=== PATIENT | female | born 2000 | race Two or more races ===

== ENCOUNTER 2022-09-11 21:39 | Inpatient (IN) | payer MEDICAID, OTHER ==
[~2022-09-11] VITALS: Ht 157.5 cm; Wt 83.0 kg
[2022-09-11] MEDS ORDERED: SODIUM CHLORIDE 0.9% 500 ML IV STA (22:14)
[2022-09-11] MEDS ORDERED: SODIUM CHLORIDE 0.9% 500 ML IV ONE (22:15)
[2022-09-11 22:45] LABS: Basophils # (auto) 0 10 ^3/uL (0-0.2); Basophils % (auto) 0.1 % (0.0-2.0); Eosinophils # (auto) 0 10 ^3/uL (0-0.8); Hematocrit 43.3 % (36.0-46.0); Hemoglobin 14.8 g/dL (12.2-16.2); Lymphocytes % (auto) 5.4 % (10.0-50.0); Mean Corpuscular Hgb Conc. 34.2 g/dL (32.0-36.0); Mean Corpuscular Volume 90.6 fL (80.0-100.0); Monocytes % (auto) 5.6 % (0.0-12.0); Neutrophils # (auto) 16.4 10 ^3/uL (1.6-8.6); Neutrophils % (auto) 88.9 % (37.0-80.0); Red Blood Cells 4.78 10^6/uL (4.0-5.20); White Blood Cell 18.5 10^3/uL (4.4-10.8)
[2022-09-11] MEDS ORDERED: ACETAMINOPHEN 650 mg PER 20.3 mL UD PO ONE (22:45)
[2022-09-11] MEDS ORDERED: AZITHROMYCIN 500MG/ 250ML 250 ML IV ONE (22:45)
[2022-09-11] MEDS ORDERED: cefTRIAXone 1GM/50ML D5W 50 ML IV ONE (22:45)
[2022-09-11 23:01] LABS: Albumin 3.7 g/dL (3.4-5.0); BUN/Creatinine Ratio 13.2; Calcium 9.2 mg/dL (8.5-10.1); Potassium 3.8 mmol/L (3.5-5.1)
[2022-09-11 23:03] LABS: Bilirubin, Total 1.2 mg/dL (0.2-1.0); Total Protein 8.1 g/dL (6.4-8.2)
[2022-09-11 23:27] LABS: Beta HCG, Quantitative < 1 mlU/mL (1-3); Thyroid Stimulating Hormone 0.58 uIU/mL (0.358-3.74)
[2022-09-12 00:51] LABS: Urine Bacteria FEW /hpf (None Seen); Urine Blood TRACE /uL (Negative); Urine Mucus FEW (None Seen); Urine Specific Gravity 1.019 (1.001-1.035); Urine WBC 65 /hpf (0 - 5)
[2022-09-12] MEDS ORDERED: NITROGLYCERIN 0.4 MG SL TAB SL PRN (03:00)
[2022-09-12] MEDS ORDERED: MORPHINE SULFATE INJ 2 MG/ml SYRG IV PRN (03:00)
[2022-09-12] MEDS: SODIUM CHLORIDE 0.9% 1,000 ML IV SCH ×2 (03:18→14:46)
[2022-09-12] MEDS: HYDROcodone-ACET 5/325MG TAB PO PRN ×4 (05:24→18:46)
[2022-09-12] MEDS: PANTOPRAZOLE 40 MG TAB PO SCH (09:38)
[2022-09-12] MEDS: ACETAMINOPHEN 325 MG TAB PO PRN ×2 (14:42→21:52)
[2022-09-12] MEDS: ONDANSETRON HCL 4 MG/2 ML VIAL IV PRN (15:26)
[2022-09-12] MEDS ORDERED: SENNA 8.6 MG TAB PO PRN (15:30)
[2022-09-12] MEDS ORDERED: POLYETHYLENE GLYCOL 17 GM PWDR PO PRN (15:30)
[2022-09-12 16:45] VITALS: BP 120/67
[2022-09-12 16:56] VITALS: BP 104/65
[2022-09-12 20:00] VITALS: BP 120/67
[2022-09-12] MEDS: SENNA 8.6 MG TAB PO SCH (21:55)
[2022-09-12 22:00] VITALS: BP 120/67
[2022-09-12] MEDS ORDERED: cefTRIAXone 1GM/50ML D5W 50 ML IV ONE (22:00)
[2022-09-12] MEDS: MORPHINE SULFATE INJ 2 MG/ml SYRG IV PRN (22:24)
[2022-09-13] MEDS: ACETAMINOPHEN 325 MG TAB PO PRN ×3 (02:13→07:58)
[2022-09-13] MEDS: SODIUM CHLORIDE 0.9% 1,000 ML IV SCH ×3 (02:32→20:43)
[2022-09-13] MEDS ORDERED: IBUPROFEN 800 MG TAB PO ONE ×2 (03:30→03:32)
[2022-09-13] MEDS: MORPHINE SULFATE INJ 2 MG/ml SYRG IV PRN ×2 (03:45→21:02)
[2022-09-13] MEDS: ONDANSETRON HCL 4 MG/2 ML VIAL IV PRN (03:45)
[2022-09-13 05:00] VITALS: BP_SYST 101; BP_SYST 118; BP_DIAS 47; BP_DIAS 74
[2022-09-13 07:16] LABS: Hematocrit 34.6 % (36.0-46.0); Mean Corpuscular Hemoglobin 31.7 pg (28.0-32.0); Mean Corpuscular Hgb Conc. 34.8 g/dL (32.0-36.0); Mean Corpuscular Volume 91.2 fL (80.0-100.0); Red Blood Cells 3.79 10^6/uL (4.0-5.20); Red Cell Distribution Width 13.1 % (11.8-14.3); White Blood Cell 7.9 10^3/uL (4.4-10.8)
[2022-09-13 07:21] LABS: Basophils % (manual) 0 (0.0-2.0); Blast Cells 0; Eosinophils % (manual) 0 (0-7); Promyelocytes % 0; Reactive Lymphocytes 0
[2022-09-13 07:24] LABS: Albumin 2.5 g/dL (3.4-5.0); BUN/Creatinine Ratio 11.3; Calcium 8.1 mg/dL (8.5-10.1); Potassium 3.1 mmol/L (3.5-5.1)
[2022-09-13 07:28] LABS: Bilirubin, Total 1.7 mg/dL (0.2-1.0); Total Protein 5.3 g/dL (6.4-8.2)
[2022-09-13 09:00] VITALS: BP 101/56
[2022-09-13] MEDS: cefTRIAXone 1GM/50ML D5W 50 ML IV SCH (09:11)
[2022-09-13] MEDS: PANTOPRAZOLE 40 MG TAB PO SCH (09:11)
[2022-09-13 09:18] LABS: Band Neutrophils % (manual) 27; Lymphocytes % (manual) 8 (10.0-50.0); Metamyelocytes % 1; Monocytes % (manual) 1 (0-12); Myelocytes % 1
[2022-09-13] MEDS ORDERED: POTASSIUM EFFERVESENT TAB 25 MEQ GT ONE (10:15)
[2022-09-13] MEDS ORDERED: IBUPROFEN 400 MG TAB PO PRN (10:30)
[2022-09-13 13:00] VITALS: BP 126/90
[2022-09-13 17:00] VITALS: BP 110/73
[2022-09-13] MEDS: SENNA 8.6 MG TAB PO SCH (21:01)
[2022-09-13] MEDS: HYDROcodone-ACET 5/325MG TAB PO PRN (22:42)
[2022-09-14 05:00] VITALS: BP 104/61
[2022-09-14] MEDS: SODIUM CHLORIDE 0.9% 1,000 ML IV SCH ×3 (06:50→21:55)
[2022-09-14 06:59] LABS: Calcium 7.7 mg/dL (8.5-10.1); Potassium 3.9 mmol/L (3.5-5.1)
[2022-09-14 07:05] LABS: Albumin 2.4 g/dL (3.4-5.0); BUN/Creatinine Ratio 14.1; Basophils # (auto) 0 10 ^3/uL (0-0.2); Basophils % (auto) 0.1 % (0.0-2.0); Bilirubin, Total 0.7 mg/dL (0.2-1.0); Eosinophils # (auto) 0 10 ^3/uL (0-0.8); Hematocrit 36.9 % (36.0-46.0); Hemoglobin 11.9 g/dL (12.2-16.2); Lymphocytes # (auto) 1.4 10 ^3/uL (0.4-5.4); Lymphocytes % (auto) 10.2 % (10.0-50.0); Mean Corpuscular Hemoglobin 29.9 pg (28.0-32.0); Mean Corpuscular Hgb Conc. 32.3 g/dL (32.0-36.0); Mean Corpuscular Volume 92.6 fL (80.0-100.0); Monocytes % (auto) 7.5 % (0.0-12.0); Neutrophils % (auto) 82.2 % (37.0-80.0); Red Blood Cells 3.99 10^6/uL (4.0-5.20); Red Cell Distribution Width 13.2 % (11.8-14.3); Total Protein 5.2 g/dL (6.4-8.2); White Blood Cell 13.3 10^3/uL (4.4-10.8)
[2022-09-14 09:00] VITALS: BP 119/81
[2022-09-14] MEDS: PANTOPRAZOLE 40 MG TAB PO SCH (10:56)
[2022-09-14] MEDS: cefTRIAXone 1GM/50ML D5W 50 ML IV SCH (10:56)
[2022-09-14] MEDS: MORPHINE SULFATE INJ 2 MG/ml SYRG IV PRN (11:47)
[2022-09-14] MEDS ORDERED: MORPHINE SULFATE INJ 2 MG/ml SYRG IV PRN (12:00)
[2022-09-14 13:00] VITALS: BP 130/85
[2022-09-14] MEDS: KETOROLAC TROMETH 30 MG/ML 1ML VIAL IV PRN ×2 (15:36→22:17)
[2022-09-14 17:00] VITALS: BP 122/77
[2022-09-14 20:00] VITALS: BP 134/82
[2022-09-14] MEDS: SENNA 8.6 MG TAB PO SCH (21:55)
[2022-09-14 22:00] VITALS: BP 101/54
[2022-09-14] MEDS: HYDROcodone-ACET 5/325MG TAB PO PRN (23:25)
[2022-09-15] VITALS (7 sets, daily range): BP systolic 95–113; BP diastolic 50–74
[2022-09-15] MEDS ORDERED: AMIODARONE HCL (50 MG/ ML) 3 ML VIAL IV ONE (02:22)
[2022-09-15] MEDS ORDERED: AMIODARONE 450mg/250ml AE 0 ML IV ONE (02:22)
[2022-09-15] MEDS: HYDROcodone-ACET 5/325MG TAB PO PRN (03:55)
[2022-09-15] MEDS: ACETAMINOPHEN 325 MG TAB PO PRN (05:38)
[2022-09-15 07:19] LABS: Potassium 3.9 mmol/L (3.5-5.1)
[2022-09-15 07:26] LABS: Albumin 2.4 g/dL (3.4-5.0); BUN/Creatinine Ratio 12.1; Bilirubin, Total 1.4 mg/dL (0.2-1.0); Calcium 7.7 mg/dL (8.5-10.1); Total Protein 5.8 g/dL (6.4-8.2)
[2022-09-15] MEDS: cefTRIAXone 1GM/50ML D5W 50 ML IV SCH (09:26)
[2022-09-15] MEDS: PANTOPRAZOLE 40 MG TAB PO SCH (09:27)
[2022-09-15 09:59] LABS: Basophils # (auto) 0 10 ^3/uL (0-0.2); Basophils % (auto) 0.1 % (0.0-2.0); Eosinophils # (auto) 0 10 ^3/uL (0-0.8); Hematocrit 34.4 % (36.0-46.0); Hemoglobin 11.3 g/dL (12.2-16.2); Lymphocytes # (auto) 0.7 10 ^3/uL (0.4-5.4); Lymphocytes % (auto) 4.7 % (10.0-50.0); Mean Corpuscular Hemoglobin 30.3 pg (28.0-32.0); Mean Corpuscular Hgb Conc. 32.7 g/dL (32.0-36.0); Mean Corpuscular Volume 92.5 fL (80.0-100.0); Monocytes # (auto) 1.1 10 ^3/uL (0-1.3); Monocytes % (auto) 7.4 % (0.0-12.0); Neutrophils % (auto) 87.8 % (37.0-80.0); Red Blood Cells 3.72 10^6/uL (4.0-5.20); Red Cell Distribution Width 13.5 % (11.8-14.3); White Blood Cell 14.8 10^3/uL (4.4-10.8)
[2022-09-15] MEDS ORDERED: cefTRIAXone 1GM/50ML D5W 50 ML IV ONE (12:00)
[2022-09-15] MEDS ORDERED: IOHEXOL 300 MG/ML 100ML BOTTLE IJ ONE (12:01)
[2022-09-15] MEDS: SODIUM CHLORIDE 0.9% 1,000 ML IV SCH ×2 (12:15→22:15)
[2022-09-15] MEDS: KETOROLAC TROMETH 30 MG/ML 1ML VIAL IV PRN ×2 (13:40→21:22)
[2022-09-15] MEDS ORDERED: TAMSULOSIN HYDROCHLORIDE 0.4 MG CAP PO SCH (14:30)
[2022-09-15] MEDS ORDERED: MANNITOL FTV 25% 12.5 GM/50 ML 50 ML IV ONE (14:30)
[2022-09-15] MEDS ORDERED: HYDROmorphone HCL 2 MG/ML VL/or syr IV PRN (15:00)
[2022-09-15] MEDS ORDERED: IODIXANOL 320MG/ML 100ML BTL IV ONE (15:16)
[2022-09-15] MEDS ORDERED: MIDAZOLAM HCL 2MG/2ML 2ml VIAL (1mg/ml) ONE (15:16)
[2022-09-15] MEDS ORDERED: fentaNYL CITRATE 100 MCG/2 ML VL ONE (15:16)
[2022-09-15] MEDS ORDERED: LIDOCAINE 2%HCL (LOCAL ANESTH.) INJ 20ML MDV ONE (15:17)
[2022-09-15] MEDS ORDERED: ceFAZolin 1GM/50ML 50 ML IV ONE (15:19)
[2022-09-15 16:40] LABS: INR 1.04 (0.9-1.15); Partial Thromboplastin Time < 20.0 sec (24.6-33.4)
[2022-09-15] MEDS: SENNA 8.6 MG TAB PO SCH (21:22)
[2022-09-16] MEDS: ACETAMINOPHEN 325 MG TAB PO PRN (04:32)
[2022-09-16 05:00] VITALS: BP 137/83
[2022-09-16 05:58] LABS: Basophils # (auto) 0 10 ^3/uL (0-0.2); Basophils % (auto) 0.2 % (0.0-2.0); Eosinophils # (auto) 0 10 ^3/uL (0-0.8); Hematocrit 35.3 % (36.0-46.0); Hemoglobin 11.5 g/dL (12.2-16.2); Lymphocytes # (auto) 1.6 10 ^3/uL (0.4-5.4); Lymphocytes % (auto) 9.6 % (10.0-50.0); Mean Corpuscular Hemoglobin 30.5 pg (28.0-32.0); Mean Corpuscular Hgb Conc. 32.6 g/dL (32.0-36.0); Mean Corpuscular Volume 93.6 fL (80.0-100.0); Monocytes # (auto) 1.2 10 ^3/uL (0-1.3); Monocytes % (auto) 7.2 % (0.0-12.0); Neutrophils # (auto) 13.7 10 ^3/uL (1.6-8.6); Nucleated Red Blood Cells % 0.1 %; Red Blood Cells 3.78 10^6/uL (4.0-5.20); Red Cell Distribution Width 13.9 % (11.8-14.3); White Blood Cell 16.5 10^3/uL (4.4-10.8)
[2022-09-16 06:30] LABS: Calcium 8.1 mg/dL (8.5-10.1); Potassium 3.8 mmol/L (3.5-5.1)
[2022-09-16 06:31] LABS: BUN/Creatinine Ratio 17.6
[2022-09-16 06:35] LABS: Bilirubin, Total 0.8 mg/dL (0.2-1.0); Total Protein 5.7 g/dL (6.4-8.2)
[2022-09-16] MEDS: KETOROLAC TROMETH 30 MG/ML 1ML VIAL IV PRN ×2 (08:48→20:06)
[2022-09-16 09:00] VITALS: BP 111/72
[2022-09-16] MEDS: PANTOPRAZOLE 40 MG TAB PO SCH (09:50)
[2022-09-16] MEDS: CEFEPIME 2 GM in SODIUM CHL 0.9% 50 ML IV SCH (09:50)
[2022-09-16 13:00] VITALS: BP 93/59
[2022-09-16 17:11] VITALS: BP 126/83
[2022-09-16] MEDS: SODIUM CHLORIDE 0.9% 1,000 ML IV SCH ×2 (18:11→18:15)
[2022-09-16] MEDS: SENNA 8.6 MG TAB PO SCH (21:16)
[2022-09-16 22:00] VITALS: BP 121/82
[2022-09-17] MEDS: KETOROLAC TROMETH 30 MG/ML 1ML VIAL IV PRN (03:41)
[2022-09-17] MEDS: SODIUM CHLORIDE 0.9% 1,000 ML IV SCH ×3 (03:48→20:33)
[2022-09-17 05:00] VITALS: BP 123/81
[2022-09-17 06:16] LABS: Hematocrit 32.3 % (36.0-46.0); Hemoglobin 10.9 g/dL (12.2-16.2); Mean Corpuscular Hemoglobin 31.1 pg (28.0-32.0); Mean Corpuscular Hgb Conc. 33.8 g/dL (32.0-36.0); Mean Corpuscular Volume 91.9 fL (80.0-100.0); Red Blood Cells 3.51 10^6/uL (4.0-5.20); Red Cell Distribution Width 13.8 % (11.8-14.3); White Blood Cell 13.4 10^3/uL (4.4-10.8)
[2022-09-17 06:17] LABS: Basophils % (manual) 0 (0.0-2.0); Blast Cells 0; Eosinophils % (manual) 0 (0-7); Metamyelocytes % 0; Myelocytes % 0; Promyelocytes % 0; Reactive Lymphocytes 0
[2022-09-17 06:31] LABS: Potassium 3.4 mmol/L (3.5-5.1)
[2022-09-17 06:41] LABS: Albumin 2.1 g/dL (3.4-5.0); BUN/Creatinine Ratio 19.3; Bilirubin, Total 0.6 mg/dL (0.2-1.0); Calcium 7.7 mg/dL (8.5-10.1); Total Protein 5.6 g/dL (6.4-8.2)
[2022-09-17 08:00] VITALS: BP 117/75
[2022-09-17 08:54] LABS: Band Neutrophils % (manual) 12; Lymphocytes % (manual) 22 (10.0-50.0); Monocytes % (manual) 5 (0-12)
[2022-09-17 09:00] VITALS: BP 117/75
[2022-09-17] MEDS: CEFEPIME 2 GM in SODIUM CHL 0.9% 50 ML IV SCH (10:46)
[2022-09-17] MEDS: PANTOPRAZOLE 40 MG TAB PO SCH (10:46)
[2022-09-17 13:00] VITALS: BP 118/82
[2022-09-17 17:00] VITALS: BP 123/84
[2022-09-17] MEDS: SENNA 8.6 MG TAB PO SCH (21:47)
[2022-09-17 22:00] VITALS: BP 117/81
[2022-09-18] VITALS (7 sets, daily range): BP systolic 114–130; BP diastolic 74–93
[2022-09-18 05:49] LABS: Hematocrit 33.1 % (36.0-46.0); Mean Corpuscular Hemoglobin 30.6 pg (28.0-32.0); Mean Corpuscular Hgb Conc. 33.3 g/dL (32.0-36.0); Mean Corpuscular Volume 91.9 fL (80.0-100.0); Red Cell Distribution Width 14.1 % (11.8-14.3); White Blood Cell 14.1 10^3/uL (4.4-10.8)
[2022-09-18 06:03] LABS: Calcium 7.5 mg/dL (8.5-10.1); Potassium 3.3 mmol/L (3.5-5.1)
[2022-09-18 06:04] LABS: Basophils % (manual) 0 (0.0-2.0); Blast Cells 0; Eosinophils % (manual) 0 (0-7); Metamyelocytes % 0; Myelocytes % 0; Promyelocytes % 0; Reactive Lymphocytes 0
[2022-09-18 06:09] LABS: Albumin 2.1 g/dL (3.4-5.0); BUN/Creatinine Ratio 10.9; Bilirubin, Total 0.6 mg/dL (0.2-1.0); Total Protein 5.8 g/dL (6.4-8.2)
[2022-09-18] MEDS: CEFEPIME 2 GM in SODIUM CHL 0.9% 50 ML IV SCH (08:42)
[2022-09-18] MEDS: SODIUM CHLORIDE 0.9% 1,000 ML IV SCH ×2 (08:43→20:15)
[2022-09-18] MEDS: PANTOPRAZOLE 40 MG TAB PO SCH (08:51)
[2022-09-18 13:49] LABS: Band Neutrophils % (manual) 1; Lymphocytes % (manual) 25 (10.0-50.0); Monocytes % (manual) 1 (0-12)
[2022-09-18] MEDS ORDERED: CEFTRIAXONE SODIUM 2 GM in D5W 5% 50 ML IV ONE (17:00)
[2022-09-18] MEDS: TEMAZEPAM 15 MG CAP PO PRN (21:27)
[2022-09-18] MEDS: SENNA 8.6 MG TAB PO SCH (21:28)
[2022-09-18] MEDS: ACETAMINOPHEN 325 MG TAB PO PRN (21:28)
[2022-09-19 05:00] VITALS: BP 116/86
[2022-09-19] MEDS: SODIUM CHLORIDE 0.9% 1,000 ML IV SCH ×2 (05:24→17:39)
[2022-09-19 06:17] LABS: Hematocrit 34.3 % (36.0-46.0); Hemoglobin 11.3 g/dL (12.2-16.2); Mean Corpuscular Hemoglobin 30.1 pg (28.0-32.0); Mean Corpuscular Hgb Conc. 32.9 g/dL (32.0-36.0); Mean Corpuscular Volume 91.6 fL (80.0-100.0); Red Blood Cells 3.74 10^6/uL (4.0-5.20); Red Cell Distribution Width 13.6 % (11.8-14.3); White Blood Cell 14.3 10^3/uL (4.4-10.8)
[2022-09-19 06:29] LABS: Basophils % (manual) 0 (0.0-2.0); Blast Cells 0; Eosinophils % (manual) 0 (0-7); Myelocytes % 0; Promyelocytes % 0; Reactive Lymphocytes 0
[2022-09-19 06:35] LABS: Albumin 2.6 g/dL (3.4-5.0); Calcium 7.7 mg/dL (8.5-10.1); Potassium 3.3 mmol/L (3.5-5.1)
[2022-09-19 06:38] LABS: BUN/Creatinine Ratio 6.8; Bilirubin, Total 0.8 mg/dL (0.2-1.0); Total Protein 5.8 g/dL (6.4-8.2)
[2022-09-19 07:32] LABS: Band Neutrophils % (manual) 16; Lymphocytes % (manual) 18 (10.0-50.0); Metamyelocytes % 4; Monocytes % (manual) 3 (0-12)
[2022-09-19 09:00] VITALS: BP 116/82
[2022-09-19] MEDS: CEFTRIAXONE SODIUM 2 GM in D5W 5% 50 ML IV SCH (09:03)
[2022-09-19] MEDS: PANTOPRAZOLE 40 MG TAB PO SCH (09:03)
[2022-09-19 13:00] VITALS: BP 121/77
[2022-09-19 17:00] VITALS: BP 116/83
[2022-09-19] MEDS: TEMAZEPAM 15 MG CAP PO PRN (21:53)
[2022-09-19] MEDS: ACETAMINOPHEN 325 MG TAB PO PRN (21:53)
[2022-09-19] MEDS: SENNA 8.6 MG TAB PO SCH (21:59)
[2022-09-19 22:00] VITALS: BP 121/81
[2022-09-20] MEDS: SODIUM CHLORIDE 0.9% 1,000 ML IV SCH ×2 (04:37→12:15)
[2022-09-20 05:00] VITALS: BP 117/80
[2022-09-20] MEDS: CEFTRIAXONE SODIUM 2 GM in D5W 5% 50 ML IV SCH (08:51)
[2022-09-20] MEDS: ACETAMINOPHEN 325 MG TAB PO PRN (08:51)
[2022-09-20] MEDS: PANTOPRAZOLE 40 MG TAB PO SCH (08:51)
[2022-09-20 09:00] VITALS: BP 115/81
[2022-09-20 10:31] LABS: Hematocrit 36.1 % (36.0-46.0); Hemoglobin 11.6 g/dL (12.2-16.2); Mean Corpuscular Hemoglobin 29.9 pg (28.0-32.0); Mean Corpuscular Hgb Conc. 32.1 g/dL (32.0-36.0); Mean Corpuscular Volume 93.4 fL (80.0-100.0); Red Blood Cells 3.86 10^6/uL (4.0-5.20); White Blood Cell 11.8 10^3/uL (4.4-10.8)
[2022-09-20 10:38] LABS: Basophils % (manual) 0 (0.0-2.0); Blast Cells 0; Eosinophils % (manual) 0 (0-7); Myelocytes % 0; Promyelocytes % 0; Reactive Lymphocytes 0
[2022-09-20 12:36] LABS: Band Neutrophils % (manual) 1; Lymphocytes % (manual) 26 (10.0-50.0); Metamyelocytes % 4; Monocytes % (manual) 7 (0-12)
[2022-09-20 13:00] VITALS: BP 109/72
[2022-09-20] MEDS ORDERED: CEFD300C2 PO (15:35)
[2022-09-20 16:49] VITALS: BP 113/76
== END 2022-09-20 18:30 | disposition home or self-care (01) | DRG 720 ==
LOC: ER 21:40 → TELE 09-12 02:56 → TELE-E-ADS 09-12 16:03 → TELE-CENTR 09-12 18:30
PROVIDERS: ADMIT Nurse Practitioner; ATTEND Student in an Organized Health Care Education/Training Program
PROC: 0T9330Z Drainage of Right Kidney Pelvis with Drainage Device, Percutaneous Approach (ICD-10-PCS; principal; 2022-09-15)
PROC: BT111ZZ Fluoroscopy of Right Kidney using Low Osmolar Contrast (ICD-10-PCS; 2022-09-15)
PROC: BT41ZZZ Ultrasonography of Right Kidney (ICD-10-PCS; 2022-09-15)
DX: A41.59 Other Gram-negative sepsis (principal); G93.41 Metabolic encephalopathy; N17.9 Acute kidney failure, unspecified; F05 Delirium due to known physiological condition; D69.6 Thrombocytopenia, unspecified; E86.0 Dehydration; N13.6 Pyonephrosis; B96.4 Proteus (mirabilis) (morganii) as the cause of diseases classified elsewhere; E66.9 Obesity, unspecified; G47.33 Obstructive sleep apnea (adult) (pediatric); M54.50 Low back pain, unspecified; Z20.822 Contact with and (suspected) exposure to COVID-19; Z93.6 Other artificial openings of urinary tract status
CPT/HCPCS: 36415; 36558; 71045; 74176; 74177; 74425; 76775; 76942; 77001; 80053; 81001; 83605; 83615; 83735; 84443; 84702; 85007; 85025; 85027; 85610; 85730; 87040; 87077; 87086; 87186; 87426; 87804; 93005; 96361; 96365; 96366; 96368; 96375; 99152; 99153; 99291; C1729; G0378; J0690; J0696; J1885; J2250; J2405; J7060; Q9967

== ENCOUNTER 2022-11-22 12:10 | Inpatient (IN) | payer MEDICAID ==
[~2022-11-22] VITALS: Ht 157.5 cm; Wt 81.3 kg
[~2022-11-22 12:10] MED LIST: CEFD300C2 PO
[2022-11-22 13:42] LABS: Basophils # (auto) 0 10 ^3/uL (0-0.2); Basophils % (auto) 0.4 % (0.0-2.0); Eosinophils # (auto) 0 10 ^3/uL (0-0.8); Eosinophils % (auto) 0.7 % (0.0-7.0); Hematocrit 42.5 % (36.0-46.0); Hemoglobin 14.8 g/dL (12.2-16.2); Lymphocytes # (auto) 2.4 10 ^3/uL (0.4-5.4); Lymphocytes % (auto) 37.4 % (10.0-50.0); Mean Corpuscular Hemoglobin 31.8 pg (28.0-32.0); Mean Corpuscular Hgb Conc. 34.9 g/dL (32.0-36.0); Mean Corpuscular Volume 91.3 fL (80.0-100.0); Monocytes # (auto) 0.3 10 ^3/uL (0-1.3); Monocytes % (auto) 5.3 % (0.0-12.0); Neutrophils # (auto) 3.7 10 ^3/uL (1.6-8.6); Neutrophils % (auto) 56.2 % (37.0-80.0); Nucleated Red Blood Cells % 0.1 %; Red Blood Cells 4.65 10^6/uL (4.0-5.20); Red Cell Distribution Width 13.1 % (11.8-14.3); White Blood Cell 6.5 10^3/uL (4.4-10.8)
[2022-11-22 14:10] LABS: Albumin 3.9 g/dL (3.4-5.0); BUN/Creatinine Ratio 12.2 (10.0-20.0); Bilirubin, Total 0.5 mg/dL (0.2-1.0); Calcium 9.1 mg/dL (8.5-10.1); Total Protein 8.5 g/dL (6.4-8.2)
[2022-11-22 14:49] LABS: Urine Bacteria NONE SEEN /hpf (None Seen); Urine Blood TRACE /uL (Negative); Urine Mucus FEW (None Seen); Urine WBC 258 /hpf (0 - 5)
[2022-11-22] MEDS ORDERED: CEPHALEXIN 250 MG CAP PO ONE (15:45)
[2022-11-22 18:04] LABS: Basophils # (auto) 0.1 10 ^3/uL (0-0.2); Eosinophils # (auto) 0.1 10 ^3/uL (0-0.8); Hematocrit 42.4 % (36.0-46.0); Hemoglobin 14.5 g/dL (12.2-16.2); Lymphocytes # (auto) 2.7 10 ^3/uL (0.4-5.4); Lymphocytes % (auto) 38.9 % (10.0-50.0); Mean Corpuscular Hemoglobin 31.1 pg (28.0-32.0); Mean Corpuscular Hgb Conc. 34.1 g/dL (32.0-36.0); Mean Corpuscular Volume 91.1 fL (80.0-100.0); Monocytes # (auto) 0.2 10 ^3/uL (0-1.3); Monocytes % (auto) 3.2 % (0.0-12.0); Neutrophils # (auto) 3.9 10 ^3/uL (1.6-8.6); Neutrophils % (auto) 55.9 % (37.0-80.0); Nucleated Red Blood Cells % 0.2 %; Red Blood Cells 4.66 10^6/uL (4.0-5.20); Red Cell Distribution Width 13.1 % (11.8-14.3)
[2022-11-22] MEDS ORDERED: SODIUM CHLORIDE 0.9% 2,000 ML IV ONE (18:15)
[2022-11-22] MEDS ORDERED: ONDANSETRON HCL 4 MG/2 ML VIAL IV PRN (18:15)
[2022-11-22] MEDS ORDERED: DOCUSATE SOD 100 MG CAP PO PRN (18:15)
[2022-11-22] MEDS ORDERED: MORPHINE SULFATE INJ 2 MG/ml SYRG IV PRN (18:15)
[2022-11-22 18:23] LABS: Calcium 9.3 mg/dL (8.5-10.1); Potassium 3.9 mmol/L (3.5-5.1)
[2022-11-22 18:26] LABS: BUN/Creatinine Ratio 13.4 (10.0-20.0); Bilirubin, Total 0.5 mg/dL (0.2-1.0); Total Protein 8.3 g/dL (6.4-8.2)
[2022-11-22] MEDS ORDERED: KETOROLAC TROMETH 30 MG/ML 1ML VIAL IV PRN (18:30)
[2022-11-23] MEDS: SODIUM CHLORIDE 0.9% 1,000 ML IV SCH ×4 (00:51→19:15)
[2022-11-23 05:49] LABS: Hematocrit 37.7 % (36.0-46.0); Hemoglobin 13.1 g/dL (12.2-16.2); Mean Corpuscular Hemoglobin 31.5 pg (28.0-32.0); Mean Corpuscular Hgb Conc. 34.6 g/dL (32.0-36.0); Mean Corpuscular Volume 91.2 fL (80.0-100.0); Red Blood Cells 4.14 10^6/uL (4.0-5.20); Red Cell Distribution Width 13.1 % (11.8-14.3); White Blood Cell 7.9 10^3/uL (4.4-10.8)
[2022-11-23 06:08] LABS: Basophils % (manual) 0 (0.0-2.0); Blast Cells 0; Eosinophils % (manual) 0 (0-7); Metamyelocytes % 0; Myelocytes % 0; Promyelocytes % 0; Reactive Lymphocytes 0
[2022-11-23 06:24] LABS: Albumin 3.2 g/dL (3.4-5.0); Calcium 8.4 mg/dL (8.5-10.1); Potassium 4.3 mmol/L (3.5-5.1)
[2022-11-23 06:29] LABS: BUN/Creatinine Ratio 16.4 (10.0-20.0); Bilirubin, Total 0.4 mg/dL (0.2-1.0); Total Protein 6.1 g/dL (6.4-8.2)
[2022-11-23 08:43] LABS: Band Neutrophils % (manual) 2; Lymphocytes % (manual) 57 (10.0-50.0); Monocytes % (manual) 5 (0-12)
[2022-11-23] MEDS: cefTRIAXone 1GM/50ML D5W 50 ML IV SCH (09:06)
[2022-11-23 10:38] VITALS: BP 100/62
[2022-11-23] MEDS ORDERED: INFLUENZA QUAD 2022-2023 0.5 ML SYRG IM ONE (12:15)
[2022-11-23] MEDS ORDERED: MIDAZOLAM HCL 2MG/2ML 2ml VIAL (1mg/ml) IV ONE (14:15)
[2022-11-23] MEDS ORDERED: fentaNYL CITRATE 100 MCG/2 ML VL IV ONE (14:15)
[2022-11-23] MEDS ORDERED: IOHEXOL 300 MG/ML 100ML BOTTLE IJ ONE (14:18)
[2022-11-23] MEDS ORDERED: LIDOCAINE 2% (LOCAL ANESTH.) PF 5ml SDV ONE (14:18)
[2022-11-23] MEDS ORDERED: MIDAZOLAM HCL 2MG/2ML 2ml VIAL (1mg/ml) ONE (14:20)
[2022-11-23] MEDS ORDERED: fentaNYL CITRATE 100 MCG/2 ML VL ONE (14:20)
[2022-11-23 16:24] VITALS: BP 94/51
[2022-11-23] MEDS ORDERED: ACETAMINOPHEN 325 MG TAB PO PRN (16:30)
[2022-11-23] MEDS ORDERED: CEFD300C2 PO (16:40)
[2022-11-23] MEDS ORDERED: ACET-1304 PO (16:40)
[2022-11-23 16:54] LABS: Hepatitis C Antibody Negative (Negative)
[2022-11-23] MEDS ORDERED: TAMSULOSIN HYDROCHLORIDE 0.4 MG CAP PO SCH (18:00)
[2022-11-23 20:00] VITALS: BP 108/67
[2022-11-23 22:00] VITALS: BP 108/67
[2022-11-24] MEDS: SODIUM CHLORIDE 0.9% 1,000 ML IV SCH ×2 (03:35→11:55)
[2022-11-24 05:27] VITALS: BP 113/73
[2022-11-24 06:40] LABS: Potassium 3.7 mmol/L (3.5-5.1)
[2022-11-24 06:48] LABS: BUN/Creatinine Ratio 8.2 (10.0-20.0); Calcium 8.5 mg/dL (8.5-10.1)
[2022-11-24 08:00] VITALS: BP 98/52
[2022-11-24] MEDS: cefTRIAXone 1GM/50ML D5W 50 ML IV SCH (09:00)
[2022-11-24] MEDS ORDERED: IOHEXOL 300 MG/ML 100ML BOTTLE IJ ONE (09:46)
[2022-11-24 09:56] VITALS: BP 98/52
[2022-11-24 12:07] VITALS: BP 98/52
[2022-11-24] MEDS ORDERED: TAM04C PO (12:14)
[2022-11-24 13:07] VITALS: BP 117/69
== END 2022-11-24 14:30 | disposition home or self-care (01) | DRG 466 ==
LOC: ER 12:10 → OVERFLOW 18:13 → EAST 11-23 10:36
PROVIDERS: ADMIT Nurse Practitioner Family; ATTEND Hospitalist
PROC: BT111ZZ Fluoroscopy of Right Kidney using Low Osmolar Contrast (ICD-10-PCS; principal; 2022-11-24)
PROC: 0TP5X0Z Removal of Drainage Device from Kidney, External Approach (ICD-10-PCS; 2022-11-24)
DX: T83.032A Leakage of nephrostomy catheter, initial encounter (principal); N10 Acute pyelonephritis; Y83.8 Other surgical procedures as the cause of abnormal reaction of the patient, or of later complication, without mention of misadventure at the time of the procedure; N13.9 Obstructive and reflux uropathy, unspecified; Z20.822 Contact with and (suspected) exposure to COVID-19; Z87.442 Personal history of urinary calculi; Z79.899 Other long term (current) drug therapy
CPT/HCPCS: 36415; 74425; 76775; 80048; 80053; 81001; 81025; 83605; 84702; 85007; 85025; 85027; 86803; 87086; 87340; 87426; 90686; G0378; J0696; J2001; J2250